=== PATIENT | female | born 1960 | race Caucasian/White ===

== ENCOUNTER 2019-09-12 09:49 | Outpatient (RCR) | payer BC, SELFPAY | END 2019-09-14 23:59 | disposition home or self-care (01) | LOC: WOUND 09:49 | PROVIDERS: Visit Provider Nurse Practitioner Family | DX: I73.9 Peripheral vascular disease, unspecified (principal); L97.322 Non-pressure chronic ulcer of left ankle with fat layer exposed | CPT/HCPCS: 11042; 87070; 87077; 87176; 87186; 87205; 99213; G0463 ==

== ENCOUNTER 2019-10-01 12:40 | Outpatient (CLI) | payer BC, SELFPAY | END 2019-10-01 12:41 | disposition home or self-care (01) | LOC: US 12:44 | PROVIDERS: PCP Nurse Practitioner Family; Visit Provider Nurse Practitioner Family | DX: Z76.89 Persons encountering health services in other specified circumstances (principal) ==

== ENCOUNTER 2019-10-10 09:48 | Outpatient (RCR) | payer BC, SELFPAY ==
--- NOTE | 2019-09-28 10:45 | USCV_ITS ---
Mily Angel Age: 59 Gender: F : 1960 Exam Date: 09/28/2019 10:48 Ordering Phys: Itzel Stevenson Technologist: Dejon Mckeon Exam Location: [facility] [place] Indication: HISTORY: VARICOSE VEINS PROCEDURES: Right duplex Venous Insufficiency study of the Deep and Superficial systems was carried out according to normal protocol with the patient in supine positon for deep system and dependent position for the superficial system. FINDINGS: All deep veins demonstrated compressibility without evidence of intraluminal thrombus or increased echogenicity. Spectral analysis of Doppler signals demonstrates normal response to compression maneuvers indicating patency without obstruction. Reflux determinations were made with the patient in the dependent position, the weight being on the contralateral leg. Vein measurements and reflux times are listed below were applicable. RT DEEP VEIN REFLUX AT LEVEL OF POPLETAL. REFLUX IN GSAPH BELOW THE KNEE. THE IS ALSO LESSER SAPH REFLUX PROXIMAL. CONCLUSIONS 1. No evidence of DVT in the above-mentioned identifiable veins. 2. On the right side, significant venous reflux of greater than 1000 ms was noted at the popliteal vein. The greater saphenous vein at the distal segment and the small saphenous vein at the proximal segment were found to have significant venous reflux of greater than 500 ms. 3. On the left side, no significant venous reflux were noted. 4. The venous dimensions, depth from the surface and reflux times are as mentioned above. Dr Germán Haider MD [facility] (Electronically Signed) Final Date: 28 September 2019 15:17 S
== END 2019-10-13 23:59 | disposition home or self-care (01) ==
LOC: WOUND 09:48
PROVIDERS: Visit Provider Nurse Practitioner Family
DX: I73.9 Peripheral vascular disease, unspecified (principal); L97.322 Non-pressure chronic ulcer of left ankle with fat layer exposed; M79.604 Pain in right leg
CPT/HCPCS: 11043; 88305; 88307; 93971; 99215; G0463; J2001

== ENCOUNTER 2019-11-08 08:57 | Outpatient (RCR) | payer BC, SELFPAY ==
--- NOTE | 2019-10-17 | USCV_ITS ---
Mily Angel Age: 59 Gender: F : 1960 Exam Date: 10/17/2019 15:28 Ordering Phys: Itzel Stevenson Technologist: Exam Location: [facility] [place] Indication: NON HEALING ULCER RIGHT LEFT Brachial 188.00 mmHg Brachial 190.00 mmHg Pressure (mmHg) Waveform Pressure (mmHg) Waveform 118.00 Above Knee 53.00 Below Knee 21.00 CREW DIRECTOR 24.00 DPA 0.13 Ankle/Brachial Index FINDINGS COULD NOT OBTAIN RIGHT TOE PRESSURE Resting TBI of 0.13 on the right side PVR waveforms showing low amplitude, delayed peaking waveforms in the calf with no waveforms at the ankle CONCLUSIONS 1. Features of severe peripheral arterial disease, possibly multisegmental, on the right side. 2. Toe pressure could not be recorded Dr Germán Haider MD [facility] (Electronically Signed) Final Date: 18 October 2019 08:58 S
== END 2019-11-13 23:59 | disposition home or self-care (01) ==
LOC: RAD 08:57
PROVIDERS: PCP Nurse Practitioner Family; Visit Provider Nurse Practitioner Family
DX: L97.312 Non-pressure chronic ulcer of right ankle with fat layer exposed (principal); I73.9 Peripheral vascular disease, unspecified; F17.210 Nicotine dependence, cigarettes, uncomplicated
CPT/HCPCS: 11042; 11045; 93922; 99212; 99213; G0463

== ENCOUNTER 2019-11-15 09:03 | Outpatient (RCR) | payer BC, SELFPAY | END 2019-12-13 23:59 | disposition home or self-care (01) | LOC: RAD 09:03 | PROVIDERS: PCP Nurse Practitioner Family; Visit Provider Nurse Practitioner Family | DX: L97.312 Non-pressure chronic ulcer of right ankle with fat layer exposed (principal); I73.9 Peripheral vascular disease, unspecified; I10 Essential (primary) hypertension; M25.571 Pain in right ankle and joints of right foot; F17.210 Nicotine dependence, cigarettes, uncomplicated | CPT/HCPCS: 11042; 11045 ==

== ENCOUNTER 2019-12-13 08:32 | Outpatient (RCR) | payer BC, SELFPAY ==
--- NOTE | 2019-11-29 10:32 | XR_ITS ---
WS: [id number] ANKLE RIGHT TECHNIQUE: 3 views of the right ankle CLINICAL INFORMATION: PAIN, REDNESS, NONHEALING ULCER COMPARISON: None. FINDINGS: Soft tissue ulceration lateral ankle. No evidence of osteomyelitis. Osteopenia. Normal ankle mortise. Normal medial lateral malleolus. XR/XR ankle RT min 3V* [id number] IMPRESSION: Soft tissue ulceration lateral ankle. No evidence of osteomyelitis.
== END 2019-12-13 23:59 | disposition home or self-care (01) ==
LOC: WOUND 08:32
PROVIDERS: PCP Nurse Practitioner Family; Visit Provider Nurse Practitioner Family
DX: I73.9 Peripheral vascular disease, unspecified (principal); L97.312 Non-pressure chronic ulcer of right ankle with fat layer exposed
CPT/HCPCS: 11042; 11045; 73610; 87070; 87077; 87106; 87176; 87186; 87205

== ENCOUNTER 2019-12-20 08:19 | Outpatient (CLI) | payer BC, SELFPAY | END 2019-12-20 08:20 | disposition home or self-care (01) | LOC: WOUND 08:20 | PROVIDERS: PCP Nurse Practitioner Family; Visit Provider Nurse Practitioner Family | DX: I73.9 Peripheral vascular disease, unspecified (principal); L97.312 Non-pressure chronic ulcer of right ankle with fat layer exposed | CPT/HCPCS: 11042; 11045 ==

== ENCOUNTER 2019-12-27 08:30 | Outpatient (CLI) | payer BC, SELFPAY | END 2019-12-27 08:31 | disposition home or self-care (01) | LOC: WOUND 08:30 | PROVIDERS: PCP Nurse Practitioner Family; Visit Provider Nurse Practitioner Family | DX: I73.9 Peripheral vascular disease, unspecified (principal); L97.312 Non-pressure chronic ulcer of right ankle with fat layer exposed | CPT/HCPCS: 11042; 11045 ==

== ENCOUNTER 2020-01-03 07:59 | Outpatient (CLI) | payer BC, SELFPAY | END 2020-01-03 08:00 | disposition home or self-care (01) | LOC: WOUND 08:00 | PROVIDERS: PCP Nurse Practitioner Family; Visit Provider Nurse Practitioner Family | DX: I73.9 Peripheral vascular disease, unspecified (principal); L97.312 Non-pressure chronic ulcer of right ankle with fat layer exposed | CPT/HCPCS: 11042; 11045 ==

== ENCOUNTER 2020-01-10 08:05 | Outpatient (CLI) | payer BC, SELFPAY | END 2020-01-10 08:06 | disposition home or self-care (01) | LOC: WOUND 08:06 | PROVIDERS: PCP Nurse Practitioner Family; Visit Provider Nurse Practitioner Family | DX: I73.9 Peripheral vascular disease, unspecified (principal); L97.312 Non-pressure chronic ulcer of right ankle with fat layer exposed | CPT/HCPCS: 15275; 15276; Q4110 ==

== ENCOUNTER 2020-01-17 08:07 | Outpatient (CLI) | payer BC, SELFPAY | END 2020-01-17 08:08 | disposition home or self-care (01) | LOC: WOUND 08:07 | PROVIDERS: PCP Nurse Practitioner Family; Visit Provider Nurse Practitioner Family | DX: I73.9 Peripheral vascular disease, unspecified (principal); L97.312 Non-pressure chronic ulcer of right ankle with fat layer exposed | CPT/HCPCS: 15275; 15276; Q4110 ==

== ENCOUNTER 2020-01-24 08:18 | Outpatient (CLI) | payer BC, SELFPAY | END 2020-01-24 08:19 | disposition home or self-care (01) | LOC: WOUND 08:21 | PROVIDERS: PCP Nurse Practitioner Family; Visit Provider Nurse Practitioner Family | DX: I73.9 Peripheral vascular disease, unspecified (principal); L97.312 Non-pressure chronic ulcer of right ankle with fat layer exposed | CPT/HCPCS: 11042; 11045 ==

== ENCOUNTER 2020-01-31 08:07 | Outpatient (CLI) | payer BC, SELFPAY | END 2020-01-31 08:08 | disposition home or self-care (01) | LOC: WOUND 08:08 | PROVIDERS: PCP Nurse Practitioner Family; Visit Provider Nurse Practitioner Family | DX: I73.9 Peripheral vascular disease, unspecified (principal); L97.312 Non-pressure chronic ulcer of right ankle with fat layer exposed | CPT/HCPCS: 15275; Q4110 ==

== ENCOUNTER 2020-02-07 08:08 | Outpatient (CLI) | payer BC, SELFPAY | END 2020-02-07 08:09 | disposition home or self-care (01) | LOC: WOUND 08:09 | PROVIDERS: PCP Nurse Practitioner Family; Visit Provider Nurse Practitioner Family | DX: I73.9 Peripheral vascular disease, unspecified (principal); L97.312 Non-pressure chronic ulcer of right ankle with fat layer exposed | CPT/HCPCS: 15271; 15272; 87070; 87077; 87176; 87186; 87205; Q4110 ==

== ENCOUNTER 2020-02-14 08:09 | Outpatient (CLI) | payer BC, SELFPAY | END 2020-02-14 08:10 | disposition home or self-care (01) | LOC: WOUND 08:09 | PROVIDERS: PCP Nurse Practitioner Family; Visit Provider Nurse Practitioner Family | DX: I73.9 Peripheral vascular disease, unspecified (principal); L97.312 Non-pressure chronic ulcer of right ankle with fat layer exposed | CPT/HCPCS: 15271; 15272; 99212; Q4110 ==

== ENCOUNTER 2020-02-21 08:12 | Outpatient (CLI) | payer BC, SELFPAY | END 2020-02-21 08:13 | disposition home or self-care (01) | LOC: WOUND 08:12 | PROVIDERS: PCP Nurse Practitioner Family; Visit Provider Surgery | DX: I73.9 Peripheral vascular disease, unspecified (principal); L97.312 Non-pressure chronic ulcer of right ankle with fat layer exposed ==

== ENCOUNTER 2020-02-28 08:11 | Outpatient (CLI) | payer BC, SELFPAY | END 2020-02-28 08:12 | disposition home or self-care (01) | LOC: WOUND 08:12 | PROVIDERS: PCP Nurse Practitioner Family; Visit Provider Emergency Medicine | DX: I73.9 Peripheral vascular disease, unspecified (principal); L97.312 Non-pressure chronic ulcer of right ankle with fat layer exposed | CPT/HCPCS: 11042; 11045 ==

== ENCOUNTER 2020-03-06 08:03 | Outpatient (CLI) | payer BC, SELFPAY | END 2020-03-06 08:04 | disposition home or self-care (01) | LOC: WOUND 08:14 | PROVIDERS: PCP Nurse Practitioner Family; Visit Provider Nurse Practitioner Family | DX: I73.9 Peripheral vascular disease, unspecified (principal); L97.312 Non-pressure chronic ulcer of right ankle with fat layer exposed | CPT/HCPCS: 11042 ==

== ENCOUNTER 2020-03-13 08:28 | Outpatient (CLI) | payer BC, SELFPAY | END 2020-03-13 08:29 | disposition home or self-care (01) | LOC: WOUND 08:33 | PROVIDERS: PCP Nurse Practitioner Family; Visit Provider Nurse Practitioner Family | DX: I73.9 Peripheral vascular disease, unspecified (principal); L97.312 Non-pressure chronic ulcer of right ankle with fat layer exposed | CPT/HCPCS: 11042 ==

== ENCOUNTER 2020-03-20 08:09 | Outpatient (CLI) | payer BC, SELFPAY ==
--- NOTE | 2020-03-20 09:54 | USCV_ITS ---
Mily Angel Age: 59 Gender: F : 1960 Exam Date: 03/20/2020 09:58 Ordering Phys: Susie Holly DO Technologist: Lizzy Sofia Exam Location: [facility] – [place]_ Indication: HISTORY: Non healing uler PROCEDURES: Right duplex Venous Insufficiency study of the Deep and Superficial systems was carried out according to normal protocol with the patient in supine positon for deep system and dependent position for the superficial system. FINDINGS: There is no evidence of RIGHT deep vein thrombosis. No evidence of superficial thrombosis in the RIGHT saphenous system. No evidence of reflux was noted in the RIGHT deep venous system. Venous reflux is demonstrated in the RIGHT greater saphenous vein with a spectral Doppler display of greater than 500 milliseconds at the proximal and mid levels. No venous reflux noted in the RIGHT small saphenous vein. CONCLUSIONS No evidence of DVT in the above-mentioned identifiable veins. Significant venous reflux of greater than 500 ms(1730- 4180 msec) were noted at the proximal and mid greater saphenous vein segments on the right side. These veins are found to be 0.42 to 0.49 cm in diameter and were greater than 1 cm deep from the surface. The venous dimensions and depth from the surface of the other venous segments are as mentioned above Dr Germán Haider MD [facility] (Electronically Signed) Final Date: 21 March 2020 13:01 S
== END 2020-03-20 08:10 | disposition home or self-care (01) ==
LOC: WOUND 08:10
PROVIDERS: PCP Nurse Practitioner Family; Visit Provider Thoracic Surgery (Cardiothoracic Vascular Surgery)
DX: I73.9 Peripheral vascular disease, unspecified (principal); L97.312 Non-pressure chronic ulcer of right ankle with fat layer exposed
CPT/HCPCS: 93971; 99212

== ENCOUNTER 2020-03-27 08:13 | Outpatient (CLI) | payer BC, SELFPAY | END 2020-03-27 08:14 | disposition home or self-care (01) | LOC: WOUND 08:14 | PROVIDERS: PCP Nurse Practitioner Family; Visit Provider Nurse Practitioner Family | DX: I73.9 Peripheral vascular disease, unspecified (principal); L97.312 Non-pressure chronic ulcer of right ankle with fat layer exposed | CPT/HCPCS: 11042; 97597 ==

== ENCOUNTER 2020-04-03 08:04 | Outpatient (CLI) | payer BC, SELFPAY | END 2020-04-03 08:05 | disposition home or self-care (01) | LOC: WOUND 08:04 | PROVIDERS: PCP Nurse Practitioner Family; Visit Provider Nurse Practitioner Family | DX: I73.9 Peripheral vascular disease, unspecified (principal); L97.312 Non-pressure chronic ulcer of right ankle with fat layer exposed | CPT/HCPCS: 11042 ==

== ENCOUNTER 2020-04-10 08:09 | Outpatient (CLI) | payer BC, SELFPAY | END 2020-04-10 08:10 | disposition home or self-care (01) | LOC: WOUND 08:10 | PROVIDERS: PCP Nurse Practitioner Family; Visit Provider Emergency Medicine | DX: I73.9 Peripheral vascular disease, unspecified (principal); L97.412 Non-pressure chronic ulcer of right heel and midfoot with fat layer exposed | CPT/HCPCS: 11042 ==

== ENCOUNTER 2020-04-17 08:12 | Outpatient (CLI) | payer BC, SELFPAY | END 2020-04-17 08:13 | disposition home or self-care (01) | LOC: WOUND 08:12 | PROVIDERS: PCP Nurse Practitioner Family; Visit Provider Emergency Medicine | DX: I73.9 Peripheral vascular disease, unspecified (principal); L97.322 Non-pressure chronic ulcer of left ankle with fat layer exposed | CPT/HCPCS: 11042 ==

== ENCOUNTER 2020-04-24 08:08 | Outpatient (CLI) | payer BC, SELFPAY | END 2020-04-24 08:09 | disposition home or self-care (01) | LOC: WOUND 08:09 | PROVIDERS: PCP Nurse Practitioner Family; Visit Provider Nurse Practitioner Family | DX: I73.9 Peripheral vascular disease, unspecified (principal); L97.312 Non-pressure chronic ulcer of right ankle with fat layer exposed | CPT/HCPCS: 11042 ==

== ENCOUNTER 2020-05-01 08:11 | Outpatient (CLI) | payer BC, SELFPAY | END 2020-05-01 08:12 | disposition home or self-care (01) | LOC: WOUND 08:11 | PROVIDERS: PCP Nurse Practitioner Family; Visit Provider Nurse Practitioner Family | DX: I73.9 Peripheral vascular disease, unspecified (principal); L97.312 Non-pressure chronic ulcer of right ankle with fat layer exposed | CPT/HCPCS: 11042; 15271; Q4110 ==

== ENCOUNTER 2020-05-08 08:28 | Outpatient (CLI) | payer BC, SELFPAY | END 2020-05-08 08:29 | disposition home or self-care (01) | LOC: WOUND 08:28 | PROVIDERS: PCP Nurse Practitioner Family; Visit Provider Nurse Practitioner Family | DX: I73.9 Peripheral vascular disease, unspecified (principal); L97.312 Non-pressure chronic ulcer of right ankle with fat layer exposed | CPT/HCPCS: 15271; Q4110 ==

== ENCOUNTER 2020-05-15 08:11 | Outpatient (CLI) | payer BC, SELFPAY | END 2020-05-15 08:12 | disposition home or self-care (01) | LOC: WOUND 08:11 | PROVIDERS: PCP Nurse Practitioner Family; Visit Provider Nurse Practitioner Family | DX: I73.9 Peripheral vascular disease, unspecified (principal); L97.312 Non-pressure chronic ulcer of right ankle with fat layer exposed | CPT/HCPCS: 11042 ==

== ENCOUNTER 2020-05-22 08:08 | Outpatient (CLI) | payer BC, SELFPAY | END 2020-05-22 08:09 | disposition home or self-care (01) | LOC: WOUND 08:08 | PROVIDERS: PCP Nurse Practitioner Family; Visit Provider Surgery | DX: I73.9 Peripheral vascular disease, unspecified (principal); L97.312 Non-pressure chronic ulcer of right ankle with fat layer exposed | CPT/HCPCS: 99212 ==

== ENCOUNTER 2020-05-29 08:10 | Outpatient (CLI) | payer BC, SELFPAY | END 2020-05-29 08:11 | disposition home or self-care (01) | LOC: WOUND 08:11 | PROVIDERS: PCP Nurse Practitioner Family; Visit Provider Nurse Practitioner Family | DX: I73.9 Peripheral vascular disease, unspecified (principal); L97.312 Non-pressure chronic ulcer of right ankle with fat layer exposed | CPT/HCPCS: 11042 ==

== ENCOUNTER 2020-06-05 08:03 | Outpatient (CLI) | payer BC, SELFPAY | END 2020-06-05 08:04 | disposition home or self-care (01) | LOC: WOUND 08:03 | PROVIDERS: PCP Nurse Practitioner Family; Visit Provider Nurse Practitioner Family | DX: I73.9 Peripheral vascular disease, unspecified (principal); L97.312 Non-pressure chronic ulcer of right ankle with fat layer exposed | CPT/HCPCS: 11042 ==

== ENCOUNTER 2020-06-12 08:18 | Outpatient (CLI) | payer BC, SELFPAY | END 2020-06-12 08:19 | disposition home or self-care (01) | LOC: WOUND 08:18 | PROVIDERS: PCP Nurse Practitioner Family; Visit Provider Nurse Practitioner Family | DX: I73.9 Peripheral vascular disease, unspecified (principal); L97.312 Non-pressure chronic ulcer of right ankle with fat layer exposed | CPT/HCPCS: 11042 ==

== ENCOUNTER 2020-06-19 08:11 | Outpatient (CLI) | payer BC, SELFPAY | END 2020-06-19 08:12 | disposition home or self-care (01) | LOC: WOUND 08:12 | PROVIDERS: PCP Nurse Practitioner Family; Visit Provider Nurse Practitioner Family | DX: I73.9 Peripheral vascular disease, unspecified (principal); L97.312 Non-pressure chronic ulcer of right ankle with fat layer exposed | CPT/HCPCS: 11042 ==

== ENCOUNTER 2020-06-26 08:02 | Outpatient (CLI) | payer BC, SELFPAY | END 2020-06-26 08:03 | disposition home or self-care (01) | LOC: WOUND 08:02 | PROVIDERS: PCP Nurse Practitioner Family; Visit Provider Nurse Practitioner Family | DX: I73.9 Peripheral vascular disease, unspecified (principal); L97.312 Non-pressure chronic ulcer of right ankle with fat layer exposed | CPT/HCPCS: 11042 ==

== ENCOUNTER 2020-07-17 08:09 | Outpatient (CLI) | payer BC, SELFPAY | END 2020-07-17 08:10 | disposition home or self-care (01) | LOC: WOUND 08:09 | PROVIDERS: PCP Nurse Practitioner Family; Visit Provider Nurse Practitioner Family | DX: I87.2 Venous insufficiency (chronic) (peripheral) (principal); L97.312 Non-pressure chronic ulcer of right ankle with fat layer exposed | CPT/HCPCS: 11042 ==

== ENCOUNTER 2020-07-31 08:03 | Outpatient (CLI) | payer BC, SELFPAY | END 2020-07-31 08:04 | disposition home or self-care (01) | LOC: WOUND 08:04 | PROVIDERS: PCP Nurse Practitioner Family; Visit Provider Nurse Practitioner Family | DX: Z09 Encounter for follow-up examination after completed treatment for conditions other than malignant neoplasm (principal) | CPT/HCPCS: 99212 ==

== ENCOUNTER 2023-04-13 15:24 | Outpatient (CLI) | payer OTHER, SELFPAY ==
--- NOTE | 2023-04-13 15:30 | CT_ITS ---
WS: [id number] CT ANGIOGRAPHY OF THE ABDOMINAL AORTA WITH RUNOFF TO THE ANKLES HISTORY: S81.801A - Unspecified open wound, right lower leg, TECHNIQUE: Arterial injection is performed during imaging to evaluate the aorta and runoff vessels to the ankles. MIP and volume rendering imaging has also been performed. All images are reviewed. All C T scans at [facility] [place] use at least one of these dose optimization techniques: automated exposu re control; mA and/or kV adjustment per patient size (includes targeted exams where dose is matched t o clinical indication); or iterative reconstruction. Contrast: Omnipaque 350; 100 mL IV. DLP: 1329.98 mGy.cm COMPARISON: None available. Abdominal aorta: Moderate atherosclerotic plaque and soft plaque with surface ulcerations. There are 2 LEFT lateral ulcerated plaques versus tiny dissections in the distal aorta. There is no aneurysm. M ild stenosis distal abdominal aorta to 6.6 mm. Celiac axis and SMA with mild atherosclerotic plaque. Increasing plaque within the LEFT gastric artery. Very high-grade stenosis distally. Accessory arteri es RIGHT kidney. Mild stenosis proximally of each renal artery. Single LEFT renal artery. RIGHT lower extremity arterial system: Extensive atherosclerotic plaque involving the RIGHT common, i nternal and external iliac arteries to the femoral artery. Multifocal areas of stenosis. Stenoses est imated near 50% throughout the common iliac and external iliac artery. Near occlusion of the proximal RIGHT internal iliac artery. Femoral artery bifurcation is patent. Small caliber SFA with scattered plaque and intimal thickening. There is occlusion at the junction of the proximal and mid SFA. The st ent in the distal SFA is occluded. No enhancement through the popliteal artery or the stent posterior to the knee. There is mild reconstitution of arterial flow in the proximal lower extremity. Small ca liber but three-vessel runoff to the ankle. LEFT lower extremity arterial system: Moderate calcified plaque and intimal thickening throughout the common, internal and external iliac arteries to the femoral artery. Stenosis is less than 50%. Large amount of plaque in the LEFT internal iliac artery with near occlusion. Femoral artery bifurcation i s intact. Normal size deep profunda. Scattered plaque and intimal thickening throughout the SFA. 60 t o 70% stenosis at the junction of the proximal and mid SFA. High-grade stenosis 80 to 90% mid SFA. Th ere are multifocal areas of significant stenosis throughout the distal SFA. High-grade stenosis and n ear complete occlusion through Everardo's canal. Attempts at reconstitution through Everardo's canal and the popliteal artery. Tibioperoneal trunk is intact. Distal to the tibioperoneal trunk there is extre dania small caliber three-vessel runoff to the ankle. Anterior tibial artery is poorly visualized and probably occluded. Peroneal artery intermittently visualized. Chronic emphysema at the lung bases. Moderate enlargement of the heart. Small hiatal hernia. Prior ch olecystectomy. Liver, spleen and pancreas and adrenal glands are unremarkable. No masses are identifi ed. No bile duct dilatation. No renal obstruction. There are a few small mesenteric lymph nodes. No f ree fluid. No GI tract obstruction. Moderate distal diverticular burden without obstruction or divert iculitis. Remote fracture with healing RIGHT inferior pubic rami. IMPRESSION: 1. Occluded arterial stent within the RIGHT SFA to popliteal artery. 2. RIGHT SFA occlusion junction of the proximal and mid SFA. This occlusion is proximal to the stent in the distal SFA. 3. Multifocal areas of stenoses bilaterally throughout the common iliac, internal and external iliac arteries as above. Most significant disease in the internal iliac arteries. Stenosis near 50% throug h the common and external iliac arteries. 4. Small caliber three-vessel runoff to the RIGHT ankle. 5. LEFT SFA, 60 to 70% stenosis junction of the proximal mid SFA. Additional areas of 80 to 90% sten osis throughout the SFA and popliteal artery. 6. Very small caliber three-vessel runoff proximal lower extremity with probable occlusion distally of the anterior tibial artery. 7. Ulcerated plaque versus very small short dissections involving the LEFT lateral infrarenal aorta. Small caliber abdominal aorta with no aneurysm or occlusion. 8. Severe atherosclerotic disease in the distal LEFT gastric artery.
[2023-04-13 16:12] LABS: Blood Urea Nitrogen 20 mg/dL (8-23); Glomerular Filtration Rate 41.4 mL/min (90-130)
[2023-04-13] MEDS: iohexol 350 mg/mL 500 mL Btl (per mL) IV (16:35)
== END 2023-04-13 15:25 | disposition home or self-care (01) ==
LOC: RAD 15:29
PROVIDERS: PCP Family Medicine; Visit Provider Thoracic Surgery (Cardiothoracic Vascular Surgery)
DX: T82.856A Stenosis of peripheral vascular stent, initial encounter (principal); Y82.8 Other medical devices associated with adverse incidents; I70.203 Unspecified atherosclerosis of native arteries of extremities, bilateral legs; I70.8 Atherosclerosis of other arteries; S81.801A Unspecified open wound, right lower leg, initial encounter; X58.XXXA Exposure to other specified factors, initial encounter; Z98.890 Other specified postprocedural states
CPT/HCPCS: 75635; 82565; 84520; Q9967

== ENCOUNTER → 2023-09-14 10:19 | Outpatient (BNVA) | payer OTHER, SELFPAY | PROVIDERS: PCP Family Medicine; Visit Provider Thoracic Surgery (Cardiothoracic Vascular Surgery) | DX: S91.001A Unspecified open wound, right ankle, initial encounter (principal); X58.XXXA Exposure to other specified factors, initial encounter | CPT/HCPCS: 87070; 87077; 87176; 87186; 87205 ==

== ENCOUNTER 2023-10-18 11:39 | Day surgery (SDC) | payer OTHER, SELFPAY ==
[2023-10-18] VITALS (26 sets, daily range): BP systolic 134–204; BP diastolic 75–103; PULSE 71–90; RESP 7–22; TEMP 36.2–36.9; O2SAT 88–99; BMI 20.1
--- NOTE | 2023-10-18 12:04 | W.PM.OPSUD ---
Surgery/Procedure H&P Update DATE OF PROCEDURE: October 18, 2023 DATE H&P PERFORMED: 10/03/23 H&P UPDATE INFORMATION: I have reviewed H&P completed within last 30 days, I have examined patient prior to procedure and No changes to prior documentation PLANNED PROCEDURE: Operation Date: 10/18/23 13:55 Proposed Procedures p [id number] split thickness skin graft from left thigh to right ankle S91.009A , I73.9(Left) - Santo Angel DO
--- NOTE | 2023-10-18 12:56 | ANES.PREANE2 ---
Pre-Anesthetic Assessment Height/Weight: Height 1.65 m Weight 55 kg Temp Pulse Resp BP Pulse Ox O2 Del Method 97.6 F 71 18 183/75 99 Room Air 10/18/23 12:10 10/18/23 12:10 10/18/23 12:10 10/18/23 12:10 10/18/23 12:10 10/18/23 12:18 Operation Date: 10/18/23 13:55 Proposed Procedures p [id number] split thickness skin graft from left thigh to right ankle S91.009A , I73.9(Left) - Santo Angel DO Last intake: Intake Last Liquid Date 10/17/23 Last Liquid Time 23:00 Last Solid Date 10/17/23 Last Solid Time 19:00 Social Tobacco Exam alert, oriented x 3, clear to auscultation bilaterally and regular rate & rhythm Airway Submandibular: within normal limits Cervical ROM: within normal limits Mallampati: Class I Pulmonary Chronic Obstructive Pulmonary Disease Anesthetic Plan ASA status: 3 Anesthesia: General Risk of > 500 ml blood loss (7ml/kg in children): No Medications/Allergies Home Medications Medication Instructions Recorded Confirmed Last Taken Type hydrocodone 5 mg-acetaminophen 325 1 tab PO Q8H PRN pain 1 week #20 04/08/23 10/03/23 10/17/23 Rx mg tablet tabs atorvastatin 80 mg tablet 80 mg PO DAILY 10/03/23 10/17/23 10/17/23 History carvedilol 12.5 mg tablet 12.5 mg PO BID 10/03/23 10/17/23 10/18/23 History clopidogrel 75 mg tablet (Plavix) 75 mg PO DAILY 10/03/23 10/17/23 10/13/23 History losartan 25 mg tablet 25 mg PO QPM 10/03/23 10/17/23 10/12/23 History spironolactone 25 mg tablet 25 mg PO DAILY 10/03/23 10/17/23 10/17/23 History aspirin 81 mg capsule 81 mg PO DAILY 10/17/23 10/17/23 10/14/23 History Allergies Allergy/AdvReac Type Severity Reaction Status Date / Time hydrochlorothiazide Allergy Unknown Verified 10/17/23 10:21 Sulfa (Sulfonamide Allergy Unknown Verified 10/17/23 10:21 Antibiotics) bactrim Allergy Unknown Unknown Uncoded 10/17/23 10:28 Data Anesthesia Cardiac Studies: No Data to Display
[2023-10-18] MEDS: fentaNYL 50 mcg/mL INJ 2mL IVP ×2 (13:04→14:55)
[2023-10-18] MEDS: sodium chloride 0.9% 1,000 ML 30 ML IV (13:04)
[2023-10-18] MEDS: ondansetron 2 mg/ML SDV 2 mL 4 MG IVP (13:14)
[2023-10-18] MEDS: ceFAZolin 2,000 MG in sodium chloride 0.9% (plus) 50 ML 100 MG IV (13:31)
[2023-10-18] MEDS: mineral oil light VIAL 10 mL TOPICAL (14:13)
[2023-10-18] MEDS: lidocaine-epi 2% PF 1:200,000 20 mL SDV XX (14:15)
--- NOTE | 2023-10-18 14:44 | PM.OP ---
Operative Report Date of procedure: October 18, 2023 Pre-op diagnosis: Chronic wound right ankle Post-op diagnosis: same Procedure done: Split thickness skin graft from left thigh to right ankle wound measuring 9 x 7 cm Implants: None Specimens removed/disposition: None Surgeon: Santo Angel DO Anesthesia: General and Local Estimated blood loss (mL): 5 Complications: None apparent Brief History: This very pleasant 63-year-old female presented my office requesting a possible skin graft to her chronic wound she has been dealing with on her right ankle. There was a healthy wound bed and a split-thickness skin graft was appropriate. The risks and benefits were explained and documented. Procedure: Patient was brought to the op room placed on the OR table in the supine position. General tracheal ovation was achieved by department anesthesia. The left thigh and right leg and foot were inspected prepped and draped in usual sterile fashion. A timeout was performed. All present were in agreement. Mineral oil was placed onto the left anterior thigh and a dermatome was used to take a split thickness skin graft measuring 0.14 from the left thigh. This was ran through the mesher and placed onto the lateral right ankle wound, which measured 9 x 7 cm. There was good coverage. Lidocaine soaked gauze was placed over the left thigh wound while the graft was applied. Xeroform was placed over the graft followed by Telfa and 4 x 4's and then Coban. For padding, 2 ABDs were then placed over the wound and an additional layer of Coban was placed. Xeroform was placed over the left thigh wound. Patient tolerated procedure well.
--- NOTE | 2023-10-18 15:18 | SUR.PHASEI ---
14:50 RECEIVED PT FROM OR STAFF. AIRWAY PATENT, WITH GOOD VENTILATION..NSR ON MONITOR. 15:00. RIGHT FOOT PLACED IN ORTHOPEDIC BOOT BY DrCAMPBALEA AND OR NURSE. ROM AND SENSATION TO TOES OF RIGHT FOOT. PT WITH C/O RIGHT ANKLE PAIN. MEDICATED FOR PAIN. PT ALERT AND RESPONSIVE.
[2023-10-18] MEDS: HYDROmorphone 1 mg/mL INJ 1 mL 0.5 MG IVP (15:32)
--- NOTE | 2023-10-18 15:50 | ANE.PACU2 ---
Inpatient post-anesthesia follow up: Vital signs: Temperature 98.4 F Pulse Rate 89 Respiratory Rate 17 Blood Pressure 201/90 Pulse Oximetry 98 Oxygen Delivery Me thod Room Air Oxygen Flow Rate 3 Fraction of Inspir ed Oxygen Additional Comments: no anesthetic complications noted
[2023-10-18] MEDS: labetalol 5 mg/mL SDV 20mL IVP ×2 (15:54→16:12)
--- NOTE | 2023-10-18 16:01 | PC.NURSE ---
1552 - JULES Varghese notified of pts pacu blood pressures - new orders rec'd
== END 2023-10-18 17:30 | disposition home or self-care (01) ==
PROVIDERS: PCP Family Medicine; Visit Provider Surgery
PROC: (CPT 15004; principal; 2023-10-18 13:35)
DX: S91.001A Unspecified open wound, right ankle, initial encounter (principal); X58.XXXA Exposure to other specified factors, initial encounter; I73.9 Peripheral vascular disease, unspecified; J44.9 Chronic obstructive pulmonary disease, unspecified; Z79.82 Long term (current) use of aspirin
CPT/HCPCS: 15004; 15120; J0690; J1100; J1170; J2405; J2704; J3010; J3490; J7030

== ENCOUNTER → 2024-05-07 11:39 | Outpatient (BNVA) | payer OTHER, MEDICAID, SELFPAY | PROVIDERS: PCP Family Medicine; Visit Provider Thoracic Surgery (Cardiothoracic Vascular Surgery) | DX: T14.8XXA Other injury of unspecified body region, initial encounter (principal); I73.9 Peripheral vascular disease, unspecified; R52 Pain, unspecified | CPT/HCPCS: 87070; 87075; 87205 ==

== ENCOUNTER → 2024-06-04 11:55 | Outpatient (BNVA) | payer OTHER, MEDICAID, SELFPAY | PROVIDERS: PCP Family Medicine; Visit Provider Thoracic Surgery (Cardiothoracic Vascular Surgery) | DX: L97.812 Non-pressure chronic ulcer of other part of right lower leg with fat layer exposed (principal) | CPT/HCPCS: 87070; 87077; 87176; 87186; 87205 ==

== ENCOUNTER → 2024-09-10 11:11 | Outpatient (BNVA) | payer OTHER, MEDICAID, SELFPAY | PROVIDERS: PCP Family Medicine; Visit Provider Thoracic Surgery (Cardiothoracic Vascular Surgery) | DX: S81.801A Unspecified open wound, right lower leg, initial encounter (principal); X58.XXXA Exposure to other specified factors, initial encounter | CPT/HCPCS: 87070; 87075; 87205 ==

== ENCOUNTER 2024-09-14 12:33 | Outpatient (CLI) | payer MEDICARE, OTHER, MEDICAID, SELFPAY ==
--- NOTE | 2024-09-14 12:30 | CT_ITS ---
WS: [id number] CT RIGHT LOWER LEG, WITH CONTRAST HISTORY: Nonhealing wound RIGHT lower extremity, below the knee amputation. Technique: All CT scans at [facility] use at least one of these dose optimization techniques: automated exposure control; mA and/or kV adjustment per patient size (includes targeted exams where dose is matched to clinical indication); or iterative reconstruction. DLP: 343.11 mGy.cm COMPARISON: None available. Contrast: Omnipaque 350; 100 cc. There is a large open wound below the knee near the amputation site. Soft tissue gap extends over a w idth of 4.0 cm and a depth of 1.6 cm. This soft tissue open wound is at the distal amputation site. T here is a large amount of soft tissue edema with mild enhancement. Although very poorly defined there is a very small fluid collection measuring 1.2 x 1.1 cm along the medial stump which could be a deve loping abscess or phlegmon. There is additional edema surrounding the tibial stump. More focal soft t issue thickening around the anterior lateral amputation site but no fluid collection. There is no contrast opacification of the RIGHT SFA, known occlusion. Numerous small extensive perfor ating arteries. Bones are severely osteopenic as expected. There is a small amount of air within the medullary cavity at the amputation site. CT/CT lower leg RT w con [id number] IMPRESSION: 1. Open wound at the RIGHT below knee amputation site measures 4.0 x 1.6 cm. L arge amount of soft tissue edema surrounding the entire below the knee stump. 2. Very small fluid collection measuring 1.2 x 1.1 cm along the medial stump m ay be a developing abscess. 3. There is a small amount of air at the tibia amputation site. If this was a recent surgery this may be postoperative air. Otherwise infection/osteomyelitis involving the distal stump should be considered.
[2024-09-14] MEDS: iohexol 350 mg/mL 500 mL Btl (per mL) IV (13:22)
[2024-09-14 13:24] LABS: Blood Urea Nitrogen 15 mg/dL (8-23); Glomerular Filtration Rate 49.8 mL/min (90-130)
== END 2024-09-14 12:34 | disposition home or self-care (01) ==
LOC: RAD 12:35
PROVIDERS: PCP Family Medicine; Visit Provider Thoracic Surgery (Cardiothoracic Vascular Surgery)
DX: S81.801A Unspecified open wound, right lower leg, initial encounter (principal); X58.XXXA Exposure to other specified factors, initial encounter; M79.661 Pain in right lower leg; R93.6 Abnormal findings on diagnostic imaging of limbs
CPT/HCPCS: 73701; 82565; 84520

== ENCOUNTER → 2024-09-17 10:22 | Outpatient (BNVA) | payer MEDICARE, OTHER, MEDICAID, SELFPAY | PROVIDERS: PCP Family Medicine; Visit Provider Thoracic Surgery (Cardiothoracic Vascular Surgery) | DX: I96 Gangrene, not elsewhere classified (principal); T87.81 Dehiscence of amputation stump; Y83.8 Other surgical procedures as the cause of abnormal reaction of the patient, or of later complication, without mention of misadventure at the time of the procedure; Z89.511 Acquired absence of right leg below knee | CPT/HCPCS: 11042; 97597 ==

== ENCOUNTER → 2024-09-24 10:20 | Outpatient (BNVA) | payer MEDICARE, OTHER, MEDICAID, SELFPAY | PROVIDERS: PCP Family Medicine; Visit Provider Thoracic Surgery (Cardiothoracic Vascular Surgery) | DX: I96 Gangrene, not elsewhere classified (principal); T87.81 Dehiscence of amputation stump; Y83.8 Other surgical procedures as the cause of abnormal reaction of the patient, or of later complication, without mention of misadventure at the time of the procedure; Z89.511 Acquired absence of right leg below knee | CPT/HCPCS: 11042; 97597 ==

== ENCOUNTER → 2024-10-01 10:30 | Outpatient (BNVA) | payer MEDICARE, OTHER, MEDICAID, SELFPAY | PROVIDERS: PCP Family Medicine; Visit Provider Thoracic Surgery (Cardiothoracic Vascular Surgery) | DX: T87.81 Dehiscence of amputation stump (principal); Y83.8 Other surgical procedures as the cause of abnormal reaction of the patient, or of later complication, without mention of misadventure at the time of the procedure; Z89.511 Acquired absence of right leg below knee; I73.9 Peripheral vascular disease, unspecified | CPT/HCPCS: 11042; 97597 ==

== ENCOUNTER 2024-10-08 11:58 | Outpatient (CLI) | payer MEDICARE, OTHER, MEDICAID, SELFPAY ==
--- NOTE | 2024-10-08 12:07 | XRR_ITS ---
PROCEDURE INFORMATION: Exam: XR Chest Exam date and time: 10/08/2024 12:21 PM Age: 64 years old Clinical indication: Pre-operative exam; Cardiovascular screening and respiratory screening exam; Additional info: T87.89 - other complications of amputation stump TECHNIQUE: Imaging protocol: Radiologic exam of the chest. Views: 1 view. COMPARISON: CT angio abd aorta runof [id number] 04/13/2023 4:24 PM FINDINGS: Tubes, catheters and devices: Multilead pacemaker/defibrillator. Lungs: Unremarkable. No consolidation. Pleural spaces: Unremarkable. No pleural effusion. No pneumothorax. Heart/Mediastinum: Unremarkable. No cardiomegaly. Bones/joints: Mild deformity from healed right rib fractures. Severe degenerative changes of the left shoulder. XR/XR chest 1V [id number] IMPRESSION: No acute cardiopulmonary disease.
== END 2024-10-08 11:59 | disposition home or self-care (01) ==
PROVIDERS: PCP Family Medicine; Visit Provider Thoracic Surgery (Cardiothoracic Vascular Surgery)
DX: T87.89 Other complications of amputation stump (principal); X58.XXXA Exposure to other specified factors, initial encounter; Z96.89 Presence of other specified functional implants; Z87.81 Personal history of (healed) traumatic fracture; R93.7 Abnormal findings on diagnostic imaging of other parts of musculoskeletal system; M19.012 Primary osteoarthritis, left shoulder; I96 Gangrene, not elsewhere classified; T87.81 Dehiscence of amputation stump; Y83.8 Other surgical procedures as the cause of abnormal reaction of the patient, or of later complication, without mention of misadventure at the time of the procedure; Z89.511 Acquired absence of right leg below knee; I73.9 Peripheral vascular disease, unspecified
CPT/HCPCS: 11042; 71045; 97597

== ENCOUNTER → 2024-10-15 10:26 | Outpatient (BNVA) | payer MEDICARE, MEDICAID, SELFPAY | PROVIDERS: PCP Family Medicine; Visit Provider Thoracic Surgery (Cardiothoracic Vascular Surgery) | DX: I73.9 Peripheral vascular disease, unspecified (principal); T87.81 Dehiscence of amputation stump; Y83.8 Other surgical procedures as the cause of abnormal reaction of the patient, or of later complication, without mention of misadventure at the time of the procedure; Z89.511 Acquired absence of right leg below knee | CPT/HCPCS: 11042; 97597 ==

== ENCOUNTER → 2024-10-22 10:31 | Outpatient (BNVA) | payer MEDICARE, OTHER, MEDICAID, SELFPAY | PROVIDERS: PCP Family Medicine; Visit Provider Thoracic Surgery (Cardiothoracic Vascular Surgery) | DX: I96 Gangrene, not elsewhere classified (principal); T87.81 Dehiscence of amputation stump; Y83.8 Other surgical procedures as the cause of abnormal reaction of the patient, or of later complication, without mention of misadventure at the time of the procedure; Z89.511 Acquired absence of right leg below knee | CPT/HCPCS: 11042; 97597 ==

== ENCOUNTER 2024-10-25 07:42 | Outpatient (CLI) | payer MEDICARE, OTHER, MEDICAID, SELFPAY ==
--- NOTE | 2024-10-25 08:00 | NM_ITS ---
WS: [id number] THREE-PHASE BONE SCAN HISTORY: T87.89 - Other complications of amputation stump COMPARISON: CT RIGHT lower extremity, 09/14/2024 Patient is is injected with 26.1 mCi Tc99m HDP intravenously. Immediate angiographic phase imaging is performed over the area of concern. Static blood pool imaging also performed. Two-hour whole-body scintigrams performed in anterior and posterior projections. Additional large field of view imaging sub mitted as necessary. Focal increased uptake noted on the arterial and blood pool phase imaging involving the medial amputation site on the RIGHT. On the blood pool phase imaging the uptake involves more of the soft tissue extending medial to lateral. On the 2-hour delayed imaging there is increased uptake involving the entire amputation site extending into the more proximal cortical bone. Photopenic defect below the knee amputation site is probably an abscess or air. Marked increased uptake involving the LEFT humeral head. Focal increased uptake involving T7 is most likely a prior fracture. Intermediate uptake within the RIGHT posterior seventh and eighth ribs. Photopenic defect over the LEFT thorax related to cardiac battery pack. Normal soft tissue uptake and renal uptake otherwise. NM/NM bone 3 phase [id number] IMPRESSION: 1. Osteomyelitis and cellulitis involving the RIGHT below the knee amputation site. Osteomyelitis extends medial to lateral and also slightly into the more p roximal cortices. There is extensive cellulitis at the amputation site. There i s a tiny photopenic defect in the distal amputation site soft tissue which is m ost likely an abscess. 2. Severe degenerative changes involving the LEFT shoulder. Corresponds to pse udoarthrosis and osseous destruction noted on a prior recent chest radiograph. 3. Increased uptake in T7, RIGHT seventh and eighth ribs. Probably all posttra umatic.
== END 2024-10-25 07:43 | disposition home or self-care (01) ==
LOC: RAD 07:43
PROVIDERS: PCP Family Medicine; Visit Provider Thoracic Surgery (Cardiothoracic Vascular Surgery)
DX: T87.89 Other complications of amputation stump (principal); I73.9 Peripheral vascular disease, unspecified; M86.8X6 Other osteomyelitis, lower leg; L03.115 Cellulitis of right lower limb; M19.012 Primary osteoarthritis, left shoulder; R93.7 Abnormal findings on diagnostic imaging of other parts of musculoskeletal system; R93.6 Abnormal findings on diagnostic imaging of limbs; X58.XXXA Exposure to other specified factors, initial encounter
CPT/HCPCS: 78315; A9561

== ENCOUNTER → 2024-10-29 10:19 | Outpatient (BNVA) | payer MEDICARE, OTHER, MEDICAID, SELFPAY | PROVIDERS: PCP Family Medicine; Visit Provider Thoracic Surgery (Cardiothoracic Vascular Surgery) | DX: I96 Gangrene, not elsewhere classified (principal); T87.81 Dehiscence of amputation stump; Y83.8 Other surgical procedures as the cause of abnormal reaction of the patient, or of later complication, without mention of misadventure at the time of the procedure; Z89.511 Acquired absence of right leg below knee | CPT/HCPCS: 11042; 87070; 87176; 87205; 97597 ==

== ENCOUNTER → 2024-11-05 08:55 | Day surgery (SDC) | payer MEDICARE, OTHER, MEDICAID, SELFPAY ==
--- NOTE | 2024-11-05 08:56 | XR_ITS ---
WS: [id number] PORTABLE CHEST HISTORY: Post PICC insertion COMPARISON: 10/08/2024 Right-sided PICC line in good position with tip overlying the caval atrial junction. LEFT subclavian pacer defibrillator. Lungs are clear and well expanded. No pleural effusion or pneumothorax. Cardiac size: Normal. Mediastinum/Aorta: Mild atherosclerosis aorta. Prior healed rib fractures RIGHT thorax. Osteopenia. Deformity of the LEFT humeral head. XR/XR chest 1V portable [id number] IMPRESSION: Satisfactory positioning RIGHT PICC line.
--- NOTE | 2024-11-05 09:30 | PICC.NOTE ---
Single lumen PICC placed to right basilic vein. Referred to vascular access nurse for PICC placement due to osteo and need for IV antibiotics x 6 weeks. Risks and benefits discussed and informed consent obtained from pt. Right arm assessed with right basilic vein measuring 4.2 mm, straight, and apparent best choice for placement. Using sterile technique and MST, right basilic vein accessed x 1 stick. Mid-arm circumference measured 10 cm from right AC 26 cm. Trimmed cath 37 cm with 1 cm external length noted. CXR shows tip in distal SVC, in good position for use per radiologist. Line secured with stat-lock. Insertion site covered with Biopatch and TSM. Baseline labs drawn as ordered. First dose of Daptomycin 350 mg IVP given as ordered with no reaction noted. Pt to have daily infusions at [facility] in [place], [place]. Pt educated on how to flush PICC and that weekly dressing changes will need performed by an RN. Report given to Wound Care nurse, ANNA Adam.
[2024-11-05] MEDS: DAPTOmycin 500 MG SDV 350 MG IVP (09:55)
[2024-11-05 10:00] LABS: Basophils % 0.3 %; Eosinophils # 0.1 10^3/uL (0.0-0.8); Eosinophils % 1.5 %; Hematocrit 41.7 % (36-47); Lymphocytes # 0.7 10^3/uL (0.8-4.8); Lymphocytes % 9.8 %; Mean Corpuscular HGB Conc 33.6 g/dL (30-55); Mean Corpuscular Hemoglobin 27.2 pg (27-33); Mean Platelet Volume 9.6 fL (7.4-10.4); Monocytes # 0.4 10^3/uL (0.2-0.9); Monocytes % 5.2 %; Neutrophils # 6.06 10^3/uL (1.8-7.7); Neutrophils % 82.8 %; Nucleated Red Blood Cells % 0 %; Platelet Count 202 10^3/cmm (157-399); Red Blood Count 5.15 10^6/uL (3.85-5.65); Red Cell Distribution Width 14.3 % (12.1-15.1); White Blood Count 7.32 10^3/uL (3.29-11.43)
[2024-11-05 10:12] VITALS: BP 173/84; PULSE 74; RESP 18; TEMP 36.2; O2SAT 96
[2024-11-05 10:14] LABS: Blood Urea Nitrogen 14 mg/dL (8-23); C Reactive Protein 4.2 mg/L (0.0-4.9); Calcium 8.7 mg/dL (8.5-10.5); Carbon Dioxide 29 mmol/L (22-29); Chloride 97 mmol/L (98-107); Glomerular Filtration Rate 62.8 mL/min (90-130); Glucose 167 mg/dL (65-115); Osmolality Calculated 290 mOsm/kg (285-295); Prealbumin 29.4 mg/dL (20-40); Sodium 138 mmol/L (136-145)
[2024-11-05 10:17] LABS: Anion Gap 16.2 (5-19); Potassium 4.2 mmol/L (3.5-5.1)
== END ==
LOC: GILAB 08:55
PROVIDERS: PCP Family Medicine; Visit Provider Thoracic Surgery (Cardiothoracic Vascular Surgery)
DX: M86.161 Other acute osteomyelitis, right tibia and fibula (principal); A49.02 Methicillin resistant Staphylococcus aureus infection, unspecified site
CPT/HCPCS: 11042; 36573; 36592; 71045; 80048; 84134; 85025; 86140; 87070; 87075; 87077; 87186; 87205; 96374; 97597; J0878

== ENCOUNTER → 2024-11-12 09:58 | Outpatient (BNVA) | payer MEDICARE, OTHER, MEDICAID, SELFPAY | PROVIDERS: PCP Family Medicine; Visit Provider Thoracic Surgery (Cardiothoracic Vascular Surgery) | DX: I96 Gangrene, not elsewhere classified (principal); T87.81 Dehiscence of amputation stump; Y83.8 Other surgical procedures as the cause of abnormal reaction of the patient, or of later complication, without mention of misadventure at the time of the procedure; Z89.511 Acquired absence of right leg below knee | CPT/HCPCS: 97597 ==

== ENCOUNTER → 2024-11-19 09:57 | Outpatient (BNVA) | payer MEDICARE, OTHER, MEDICAID, SELFPAY | PROVIDERS: PCP Family Medicine; Visit Provider Thoracic Surgery (Cardiothoracic Vascular Surgery) | DX: I96 Gangrene, not elsewhere classified (principal); L97.811 Non-pressure chronic ulcer of other part of right lower leg limited to breakdown of skin; T87.81 Dehiscence of amputation stump; Y83.8 Other surgical procedures as the cause of abnormal reaction of the patient, or of later complication, without mention of misadventure at the time of the procedure; Z89.511 Acquired absence of right leg below knee | CPT/HCPCS: 97597 ==

== ENCOUNTER → 2024-11-26 09:54 | Outpatient (BNVA) | payer MEDICARE, OTHER, MEDICAID, SELFPAY | PROVIDERS: PCP Family Medicine | DX: I96 Gangrene, not elsewhere classified (principal); T87.81 Dehiscence of amputation stump; Y83.8 Other surgical procedures as the cause of abnormal reaction of the patient, or of later complication, without mention of misadventure at the time of the procedure; Z89.511 Acquired absence of right leg below knee | CPT/HCPCS: 11042; 97597; A6212 ==

== ENCOUNTER → 2024-12-03 09:45 | Outpatient (BNVA) | payer MEDICARE, OTHER, MEDICAID, SELFPAY | PROVIDERS: PCP Family Medicine; Visit Provider Thoracic Surgery (Cardiothoracic Vascular Surgery) | DX: I96 Gangrene, not elsewhere classified (principal); L97.811 Non-pressure chronic ulcer of other part of right lower leg limited to breakdown of skin; T87.81 Dehiscence of amputation stump; Y83.8 Other surgical procedures as the cause of abnormal reaction of the patient, or of later complication, without mention of misadventure at the time of the procedure; Z89.511 Acquired absence of right leg below knee | CPT/HCPCS: 97597; A6197; A6219 ==

== ENCOUNTER → 2024-12-10 10:28 | Outpatient (BNVA) | payer MEDICARE, OTHER, MEDICAID, SELFPAY | PROVIDERS: PCP Family Medicine; Visit Provider Thoracic Surgery (Cardiothoracic Vascular Surgery) | DX: I96 Gangrene, not elsewhere classified (principal); T87.81 Dehiscence of amputation stump; Y83.8 Other surgical procedures as the cause of abnormal reaction of the patient, or of later complication, without mention of misadventure at the time of the procedure; Z89.511 Acquired absence of right leg below knee; L97.811 Non-pressure chronic ulcer of other part of right lower leg limited to breakdown of skin | CPT/HCPCS: 97597; A6021; A6212 ×2 ==

== ENCOUNTER → 2024-12-17 10:19 | Outpatient (BNVA) | payer MEDICARE, OTHER, MEDICAID, SELFPAY | PROVIDERS: PCP Family Medicine; Visit Provider Thoracic Surgery (Cardiothoracic Vascular Surgery) | DX: I96 Gangrene, not elsewhere classified (principal); T87.81 Dehiscence of amputation stump; Y83.8 Other surgical procedures as the cause of abnormal reaction of the patient, or of later complication, without mention of misadventure at the time of the procedure; Z89.511 Acquired absence of right leg below knee; L97.811 Non-pressure chronic ulcer of other part of right lower leg limited to breakdown of skin | CPT/HCPCS: 87070; 87075; 87186; 87205; 97597; A6197; A6212; A6248 ==

== ENCOUNTER → 2024-12-24 10:01 | Outpatient (BNVA) | payer MEDICARE, OTHER, MEDICAID, SELFPAY | PROVIDERS: PCP Family Medicine; Visit Provider Thoracic Surgery (Cardiothoracic Vascular Surgery) | DX: I96 Gangrene, not elsewhere classified (principal); T81.31XD Disruption of external operation (surgical) wound, not elsewhere classified, subsequent encounter; Y83.8 Other surgical procedures as the cause of abnormal reaction of the patient, or of later complication, without mention of misadventure at the time of the procedure; Z89.511 Acquired absence of right leg below knee; L97.811 Non-pressure chronic ulcer of other part of right lower leg limited to breakdown of skin | CPT/HCPCS: 97597 ==

== ENCOUNTER → 2024-12-31 10:17 | Outpatient (BNVA) | payer MEDICARE, OTHER, MEDICAID, SELFPAY | PROVIDERS: PCP Family Medicine; Visit Provider Thoracic Surgery (Cardiothoracic Vascular Surgery) | DX: I96 Gangrene, not elsewhere classified (principal); T81.31XD Disruption of external operation (surgical) wound, not elsewhere classified, subsequent encounter; Y83.8 Other surgical procedures as the cause of abnormal reaction of the patient, or of later complication, without mention of misadventure at the time of the procedure; L97.811 Non-pressure chronic ulcer of other part of right lower leg limited to breakdown of skin; Z89.511 Acquired absence of right leg below knee | CPT/HCPCS: 97597; A6021 ==

== ENCOUNTER → 2025-01-08 10:08 | Outpatient (BNVA) | payer MEDICARE, OTHER, MEDICAID, SELFPAY | PROVIDERS: PCP Family Medicine; Visit Provider Thoracic Surgery (Cardiothoracic Vascular Surgery) | DX: I96 Gangrene, not elsewhere classified (principal); T87.81 Dehiscence of amputation stump; Y83.8 Other surgical procedures as the cause of abnormal reaction of the patient, or of later complication, without mention of misadventure at the time of the procedure; Z89.511 Acquired absence of right leg below knee; L97.811 Non-pressure chronic ulcer of other part of right lower leg limited to breakdown of skin ==

== ENCOUNTER → 2025-01-22 10:01 | Outpatient (BNVA) | payer MEDICARE, OTHER, MEDICAID, SELFPAY | PROVIDERS: PCP Family Medicine; Visit Provider Thoracic Surgery (Cardiothoracic Vascular Surgery) | DX: I96 Gangrene, not elsewhere classified (principal); T87.81 Dehiscence of amputation stump; Y83.8 Other surgical procedures as the cause of abnormal reaction of the patient, or of later complication, without mention of misadventure at the time of the procedure; Z89.511 Acquired absence of right leg below knee; L97.811 Non-pressure chronic ulcer of other part of right lower leg limited to breakdown of skin | CPT/HCPCS: 99212 ==